=== PATIENT | female | born 1965 | race Caucasian/White ===

== ENCOUNTER 2018-07-15 08:54 | Day surgery (SDC) | payer MEDICAID ==
[~2018-07-15 08:54] MED LIST: CEFAZOLIN 2 GM/50 ML (PMX) 50 ML IVPB; EPHEDrine SULFATE 50 MG/5 ML SYG; SOD CHLORIDE 0.9% 1,000 ML IV
[2018-07-15] MEDS ORDERED: LIDOCAINE 2% (SDV) 5 ML INJ (10:15)
[2018-07-15] MEDS ORDERED: CEFAZOLIN 1 GM INJ (10:15)
[2018-07-15] MEDS ORDERED: PROPOFOL 40 ML (10:15)
[2018-07-15] MEDS ORDERED: MIDAZOLAM 1 MG/ML 2 ML INJ (10:16)
[2018-07-15] MEDS ORDERED: FAMOTIDINE 20 MG INJ (10:16)
[2018-07-15] MEDS ORDERED: ONDANSETRON 4 MG INJ (10:16)
[2018-07-15] MEDS ORDERED: DEXAMETHASONE 4 MG/ML 1 ML INJ (10:16)
[2018-07-15] MEDS ORDERED: FENTAnyl 50 MCG/ML VIAL ×2 (10:16→11:16)
[2018-07-15] MEDS ORDERED: MEPERIDINE 25 MG INJ IV (11:00)
[2018-07-15] MEDS ORDERED: ONDANSETRON 4 MG INJ IV (11:00)
[2018-07-15] MEDS ORDERED: ALBUTEROL 0.083% (NEB) 2.5 MG/3 ML AMP HHN (11:00)
[2018-07-15] MEDS ORDERED: DIPHENHYDRAMINE 50 MG INJ IV (11:00)
[2018-07-15] MEDS ORDERED: LABETALOL HCL 20MG INJ IV (11:00)
[2018-07-15] MEDS ORDERED: HYDROmorphONE 1 MG/5 ML IV SYRINGE IV ×2 (11:00)
[2018-07-15] MEDS ORDERED: OXYCODONE/ACETAMINOPHEN (5/325) TAB PO ×2 (11:00)
[2018-07-15] MEDS ORDERED: morphine (1 MG/ML) 10ML SYRINGE IV ×2 (11:00)
[2018-07-15] MEDS ORDERED: FENTAnyl 50 MCG/ML VIAL IV ×2 (11:00)
[2018-07-15] MEDS ORDERED: PHENYLephrine (100 MCG/ML) 5ML SYG (11:07)
[2018-07-15] MEDS ORDERED: HYDROCODONE/APAP (7.5/325) TAB PO (12:00)
== END 2018-07-15 13:08 | disposition home or self-care (01) ==
LOC: SDS 08:54
DX: N60.21 Fibroadenosis of right breast (principal); N60.11 Diffuse cystic mastopathy of right breast; E03.9 Hypothyroidism, unspecified
CPT/HCPCS: 19120; 84703